=== PATIENT | female | born 1945 | race Caucasian/White ===

== ENCOUNTER → 2017-04-03 | Outpatient (CLI) | payer MEDICARE, BC | END | disposition home or self-care (01) | LOC: RAD.S 03-27 10:00 | DX: Z12.31 Encounter for screening mammogram for malignant neoplasm of breast (principal); N63 Unspecified lump in breast ==

== ENCOUNTER 2017-04-24 11:40 | Emergency (ER) | payer MEDICARE, BC ==
--- NOTE | 2017-05-04 14:22 | ER ---
ADMIT: 04/24/2017 RM/LOC: ER [facility] MR#: [id number] [id number] [place] [address] Emergency Room Report SEX: F AGE: 71 : 1945 DATE: 04/24/2017 ADDENDUM: CHIEF COMPLAINT: Dislocated finger. HISTORY OF PRESENT ILLNESS: This is a 71-year-old female who had fallen. She dislocated her right fifth finger at the DIP joint, also opened up the skin. COURSE IN THE EMERGENCY ROOM: We did reduce the fracture after doing a digital block, Inserted two 5-0 Ethilon sutures and then placed her in a splint and sent her home with Keflex. The wound was cleansed with Ultradex, Betadine, and flushed. CLINICAL IMPRESSION: Open dislocation of the right fifth finger at the DIP joint. MILAGROS John / Gerhard Connelly MD / soledadl JOB #: [id number] CC: Gerhard Connelly MD, Attending Physician Suresh Medrano MD, Family Physician
== END 2017-04-24 14:07 | disposition home or self-care (01) ==
LOC: ER 11:40
PROC: 0HQFXZZ Repair Right Hand Skin, External Approach (ICD-10-PCS; principal; 2017-04-24)
DX: S63.296A Dislocation of distal interphalangeal joint of right little finger, initial encounter (principal); I10 Essential (primary) hypertension; Z79.899 Other long term (current) drug therapy; Z23 Encounter for immunization; W18.30XA Fall on same level, unspecified, initial encounter